=== PATIENT | male | born 1985 | race Caucasian/White ===

== ENCOUNTER 2019-03-18 19:21 | Outpatient (CLI) | payer OTHER | END 2019-03-18 19:22 | disposition home or self-care (01) | LOC: SC 19:21 | PROVIDERS: ATTEND Internal Medicine Pulmonary Disease | DX: G47.33 Obstructive sleep apnea (adult) (pediatric) (principal); G47.61 Periodic limb movement disorder | CPT/HCPCS: 95810 ==

== ENCOUNTER 2019-04-15 13:43 | Outpatient (CLI) | payer OTHER ==
--- NOTE | 2019-04-15 14:16 | SLEEP CARE CONSULTATION ---
Information from patient questionnaire entered by Lisa Silva. I have reviewed and concur with the information entered by Lisa Silva. This document represents the service I personally performed and the decisions made by me, Jasmine Pan MD, [facility]. History of Present Illness Initial [place] Sleepiness Scale score: 11 Current [place] Sleepiness Scale score: 15 Additional HPI information: HPI: Mr. Eastman returned for follow up of the sleep study he had on 03/18/2019. The polysomnography showed that the patient had slightly reduced sleep efficiency frequent awakenings after the sleep onset. The sleep architecture abnormal for sleep fragmentation and reduced amount of time spent in REM sleep. Respiratory monitoring showed severe obstructive sleep apnea-hypopnea (AHI = 31.8) associated with frequent arousals, oxyhemoglobin desaturation and mild hypoxia (christa oxygen saturation of 86%). The respiratory events occurred mainly during supine sleep (supine AHI = 67.8; non-supine = 15.23). Snore was lo ud in intensity. There was mild periodic leg movement of sleep not contributing to the sleep fragmentation. Cardiac rhythm was normal sinus rhythm without significant arrhythmia. No abnormal behavior (parasomnia) observed during the night. The patient was informed of these findings. I explained to him the pathophysiology behind obstructive sleep apnea. We then spent quite a bit of time discussing different treatment options. For mild obstructive sleep apnea, surgery and oral appliance are alternatives to nasal CPAP therapy but in moderate or severe cases, nasal CPAP is the most effective and reliable treatment. Weight loss in an obese individual is strongly recommended. After some discussion, he opted to go with the nasal CPAP therapy. I explained to him how CPAP machine works and what to expect when using the machine. He is encouraged to use CPAP every night especially in the first 2 to 3 nights in order to get used to it. He should call his CPAP supplier or me to discuss any mechanical problem that may occur. If he snores or feels like he is not getting enough air from the machine, he should notify me and I will increase the pressure. Allergies and Home Medications Drug allergies reviewed: Yes Home medication list reviewed: Yes Review of Systems Review of systems same as previous: Yes Physical Exam Weight: 250 lb Impression and Plan IMPRESSION: 1. Obstructive Sleep Apnea-Hypopnea Syndrome, severe, associated with mild hypoxemia and sleep fragmentation. Obviously this is the cause of the patients symptoms of unrefreshed sleep, and excessive daytime sleepiness. As mentioned above, the patient will be started on autoCPAP set between 5 and 15 cmH2O. A manual CPAP/BiPAP titration study will be scheduled. PLAN: 1. Prescription made for an autoCPAP, heated humidifier, and related supplies. 2. Attempt to lose weight and avoid alcohol consumption near bedtime. 3. The patient is again cautioned about driving until his sleepiness completely resolves on the CPAP therapy. 4. Schedule a manual CPAP/BiPAP titration study. 5. Return for follow up after the titration study. I spent 100% of this visit face to face with the patient with greater than 50% of this was spent time counseling the patient and coordination of care.
== END 2019-04-15 13:44 | disposition home or self-care (01) ==
LOC: SC 13:43
PROVIDERS: ATTEND Internal Medicine Pulmonary Disease
DX: G47.33 Obstructive sleep apnea (adult) (pediatric) (principal)
CPT/HCPCS: 99212; 99213

== ENCOUNTER 2019-05-06 19:07 | Outpatient (CLI) | payer OTHER | END 2019-05-06 19:08 | disposition home or self-care (01) | LOC: SC 19:07 | PROVIDERS: ATTEND Internal Medicine Pulmonary Disease | DX: G47.33 Obstructive sleep apnea (adult) (pediatric) (principal); E66.9 Obesity, unspecified; Z68.33 Body mass index [BMI] 33.0-33.9, adult | CPT/HCPCS: 95811 ==

== ENCOUNTER 2019-06-10 12:48 | Outpatient (CLI) | payer OTHER ==
[2019-06-10 13:33] VITALS: BP 120/66
--- NOTE | 2019-06-10 13:33 | SLEEP CARE CONSULTATION ---
Information from patient questionnaire entered by Lisa Silva. I have reviewed and concur with the information entered by Lisa Silva. This document represents the service I personally performed and the decisions made by me, Jessie Martinez, RN, MSN, FACILITY OPERATIONS MANAGER. History of Present Illness Previous diagnosis: Severe, Obstructive Sleep Apnea-Hypopnea Syndrome AHI: 31.8 Reason for follow up: with manual titration, other (set up 05/26/19) Equipment obtained from: [employer] Mask style: Nasal pillows Mask brand: Resmed Backup mask available: Yes (from titration study ) Last cushion change: not since set up Prior sleep studies: Yes HPI additional information: MARY CONTEH retruns for follow up of the sleep study with a manual CPAP titration study performed on 05/06/19. I explained that the optimal CPAP pressure is 12 cmH20. He started autoCPAP about 15 days ago on autoCPAP set at [id number] with median pressure of 8cmh20 and 95th percetntile of 10.5cmH20 amd maximum of 12. 1 with residual AHI of 3.9. Sleep Study - Results Polysomnography/Home Sleep Study results: The quality of the study is good. CPAP was initiated at 4 cmH2O and titrated up to CPAP at 13 cmH2O. CPAP at 12 cmH2O appeared to be optimal (AHI of 1.6 per hour on the pressure). There was supine sleep on the pressure. Oxygen saturation was minimally low. Lower CPAP settings allowed a few residual respiratory events. The patient appeared to have tolerated positive airway pressure therapy very well. The patients sleep efficiency was normal. The sleep architecture was relatively normal as well considering the first night effect. There was no significant periodic leg movement of sleep. Cardiac rhythm was normal sinus rhythm without significant arrhythmia. No abnormal behavior (parasomnia) observed during the night. CPAP Compliance Data - Data Reviewed with Patient Compliance rate %: 67 (15 days just started use) Current pressure setting (cmH2O): 5-15 Humidity settin Heated hose setting: auto Average residual AHI: 3.9 Subjective Patient concerns: denies: aerophagia, mask discomfort, air blowing in eyes, mask leak noise, condensation in mask/hose, nasal congestion, dry mouth, nose, throat, epistaxis Observed to snore while using device: No Current pressure setting perceived as: comfortable On therapy, patient: reports: sleeping better, being more awake and alert during the day, more rested overall. denies: awakening more refreshed, drowsiness while driving Initial [place] Sleepiness Scale score: 11 Current [place] Sleepiness Scale score: 3 Allergies and Home Medications Known drug allergies: No Home medication list reviewed: Yes Allergy and home medication list: paroxetine 40mg daily Review of Systems Review of systems same as previous: Yes Physical Exam Blood Pressure: 120/66 Cuff size: long Heart Rate: 77 O2 Saturation: 97 Height: 6 ft Weight: 275 lb 3.2 oz Body Mass Index: 37.3 BMI Classification: Obese Impression and Plan 1. Obstructive Sleep Apnea-Hypopnea Syndrome, severe, with good treatment compliance and good apnea control for the first 15 days of use . On CPAP , the patient has better sleep quality and is more rested overall. The titration study showed he slept the best at [id number] so I will change his autoCPAP to that range. He is to contact [facility] with choice of mask and to update his supplies. Patient's apnea severity and rationale for treatment to reduce apnea, improve sleep quality and reduce cardiovascular and cerebrovascular events was reviewed. I also reviewed the benefit of consistent device use of CPAP for anxiety. * * Change CPAP pressure to 12-13 cmH2O * Notify me if snoring with mask or feeling that the pressure is too much or too little * Attempt to lose weight * Call this office if any problems using CPAP * Return for follow up in 1 month , or sooner if concerns arise Time Spent with Patient (minutes): 31 I spent 100% of this visit face to face with the patient with greater than 50% of this was spent time counseling the patient and coordination of care.
== END 2019-06-10 12:49 | disposition home or self-care (01) ==
LOC: SC 12:48
PROVIDERS: ATTEND Nurse Practitioner Family
DX: G47.33 Obstructive sleep apnea (adult) (pediatric) (principal); E66.9 Obesity, unspecified; Z68.37 Body mass index [BMI] 37.0-37.9, adult
CPT/HCPCS: 99212; 99214

== ENCOUNTER 2019-08-12 16:22 | Outpatient (CLI) | payer OTHER ==
--- NOTE | 2019-08-12 09:35 | SLEEP CARE CONSULTATION ---
Information from patient questionnaire entered by Lisa Silva. I have reviewed and concur with the information entered by Lisa Silva. This document represents the service I personally performed and the decisions made by me, Jasmine Pan MD, [facility]. History of Present Illness Service Date and Time: 08/12/2019 0926 Previous diagnosis: Severe, Obstructive Sleep Apnea-Hypopnea Syndrome AHI: 31.8 Reason for follow up: first compliance Equipment type: CPAP Equipment obtained from: [facility] additional information: To minimize the risk of COVID-19 exposure, the patient has requested and consented to this video telemedicine visit. The patient also agrees to having his insurance billed. HPI: Mr. Eastman was called today to follow up on the nasal CPAP therapy. He was diagnosed to have severe obstructive sleep apnea-hypopnea syndrome. The patient wears nasal pillows. He reports using the device nightly and all through the night. The compliance report shows usage in 29 nights out of the past 30 nights, averaging 6.4 hours a night. The > 4 hour compliance rate for the past 30 days is 83%. He complained of no particular problem with the device such as soreness on the face, dry nose, epistaxis, nasal congestion or headache. He thinks that the pressure of 12 13 cmH2O is comfortable. On the CPAP therapy he notices improvement in his sleep quality, and that he wakes up feeling fresher in the morning and more awake/alert during the day. His notices no snore at all. The average residual AHI is 1.9; and average time in large leak per day is 2.4 L/minute. The 90th percentile pressure is 12.8 cmH2O. CPAP Compliance Data - Data Reviewed with Patient Average duration of nightly device use: 6h 24m Compliance rate %: 83 Current pressure setting (cmH2O): 12-13 Subjective Initial [place] Sleepiness Scale score: 11 Allergies and Home Medications Drug allergies reviewed: Yes Home medication list reviewed: Yes Review of Systems Review of systems same as previous: Yes Physical Exam Height: 6 ft Impression and Plan IMPRESSION: 1. Obstructive Sleep Apnea-Hypopnea Syndrome, severe (AHI was 31.8), with the patient doing well on nasal CPAP therapy. He has excellent compliance and significant clinical improvement. The current pressure appears effective and comfortable. His mask fits well. Overall, he is very satisfied with treatment and plans to continue with it long-term. No adjustment is necessary today. PLAN: 1. Continue with autoCPAP set at 12 - 13 cmH2O. 2. Try to lose weight 3. Try ResMed N30i mask and P30i nasal pillows. 4. Return in one year for follow up or earlier if there is any problem with the treatment. Visit Type: Telehealth Video Video Type: [employer] Location of Provider: Home Patient agrees and consents to this telehealth visit type: Yes Time Spent with Patient (minutes): 15 Provider Statement: I spent 100% of the Telehealth Video Call with the patient with greater than 50% spent counseling the patient and coordination of care.
== END 2019-08-12 16:23 | disposition home or self-care (01) ==
LOC: SC 16:22
PROVIDERS: ATTEND Internal Medicine Pulmonary Disease
DX: G47.33 Obstructive sleep apnea (adult) (pediatric) (principal)
CPT/HCPCS: 99212; 99213

== ENCOUNTER 2020-09-13 14:28 | Outpatient (CLI) | payer OTHER ==
--- NOTE | 2020-09-15 12:11 | SLEEP CARE CONSULTATION ---
Information from patient questionnaire entered by More Lance. I have reviewed and concur with the information entered by More Lance. This document represents the service I personally performed and the decisions made by me, Jasmine Pan MD, [facility]. History of Present Illness Service Date and Time: 09/13/2020 1428 Previous diagnosis: Severe, Obstructive Sleep Apnea-Hypopnea Syndrome AHI: 31.8 (in 2019) Reason for follow up: annual (last seen 07/2019) Equipment type: CPAP Equipment obtained from: [email or web address] Mask style: Nasal pillows Prior sleep studies: Yes Year and Where: 2019 - [facility] HPI additional information: HPI: Mr. Eastman was diagnosed to have severe obstructive sleep apnea-hypopnea syndrome and returns today for annual follow up of CPAP therapy. The patient purchased the device from [email or web address] and was fitted with a nasal mask. He uses the device nightly and all through the night. The compliance report shows that he uses the device 174 nights out of the past 180 nights, averaging 8 hours a night. He complains of no particular problem with the device such as soreness on the face, dry nose, epistaxis, nasal congestion or headache. He thinks that the pressure of 12 - 13 cmH2O is comfortable. On the CPAP therapy he notices improvement in his sleep quality, and that he wakes up feeling fresher in the morning and more awake/alert during the day. His notices no snore at all. [place] Sleepiness Scale score is 5. The average residual AHI is 2.0; and average time in large leak per day is 0.2 L/minute. CPAP Compliance Data - Data Reviewed with Patient Average duration of nightly device use: 7 hr 56 min Compliance rate %: 94 (180 days) Current pressure setting (cmH2O): 12-13 Humidity settin Average residual AHI: 2.0 Subjective Current pressure setting perceived as: comfortable Initial [place] Sleepiness Scale score: 11 (in 2019) Current [place] Sleepiness Scale score: 5 Allergies and Home Medications Drug allergies reviewed: Yes Home medication list reviewed: Yes Review of Systems Review of systems same as previous: Yes Physical Exam Height: 6 ft Weight: 240 lb Body Mass Index: 32.5 BMI Classification: Obese Impression and Plan IMPRESSION: 1. Obstructive Sleep Apnea-Hypopnea Syndrome, severe (AHI was 31.8) with the patient continuing to do well on nasal CPAP therapy. He has excellent compliance and significant clinical benefits. The current pressure appears effective and comfortable. Overall, he is very satisfied with treatment and plans to continue with it long-term. No adjustment is necessary today. The patient is relocating to [place] in a few weeks. PLAN: 1. Continue with autoCPAP set at 12 - 13 cm H2O. 2. Try to lose weight 3. Establish care with a sleep clinic in [place]. Follow up recommended for: Weight management Visit Type: In Office Time Spent with Patient (minutes): 15 Provider Statement: I spent 100% of the Face to Face Visit with the patient with greater than 50% spent counseling the patient and coordination of care.
== END 2020-09-13 14:29 | disposition home or self-care (01) ==
LOC: SC 14:28
PROVIDERS: ATTEND Internal Medicine Pulmonary Disease
DX: G47.33 Obstructive sleep apnea (adult) (pediatric) (principal); E66.9 Obesity, unspecified; Z68.32 Body mass index [BMI] 32.0-32.9, adult
CPT/HCPCS: 99212